=== PATIENT | female | born 1985 | race Caucasian/White ===

== ENCOUNTER 2018-05-03 17:43 | Emergency (ER) | payer BC, OTHER ==
[2018-05-03 17:51] VITALS: BP 131/82
[2018-05-03] MEDS ORDERED: diphenhydrAMINE 50 MG/ML SDV IVPUSH ONE ×2 (18:45→18:46)
[2018-05-03] MEDS ORDERED: Sodium Chloride 0.9% 10 ML Syringe FLUSH PRN (18:45)
[2018-05-03] MEDS ORDERED: Ketorolac 30 MG/ML SDV IVPUSH ONE (18:45)
[2018-05-03] MEDS ORDERED: Ondansetron 4 MG/2 ML SDV IVPUSH ONE (18:45)
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
[2018-05-03] MEDS ORDERED: Sodium Chloride 0.9% 1,000 ML IV ONE (19:49)
[2018-05-03] MEDS ORDERED: HYDROmorphone 0.5 MG/0.5 ML SYRINGE IVPUSH ONE ×2 (19:49→21:50)
[2018-05-03] MEDS ORDERED: LORazepam 0.5 MG Tab PO ONE (19:50)
== END 2018-05-03 22:23 | disposition home or self-care (01) ==
LOC: JD.ED 17:43
DX: G43.909 Migraine, unspecified, not intractable, without status migrainosus (principal); Z88.0 Allergy status to penicillin; Z88.1 Allergy status to other antibiotic agents; Z79.899 Other long term (current) drug therapy
CPT/HCPCS: 96361; 96374; 96375; 96376; 99284; A9270; J1170; J1200; J1885; J2405; J7040; J7050

== ENCOUNTER 2019-12-26 09:49 | Emergency (ER) | payer OTHER ==
[2019-12-26] MEDS ORDERED: Ondansetron 4 MG Tab.DIS PO ONE (10:35)
[2019-12-26] MEDS ORDERED: LORazepam 1 MG Tab PO ONE (10:50)
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
[2019-12-26 12:43] VITALS: BP 117/65; PULSE 88
== END 2019-12-26 12:25 | disposition home or self-care (01) ==
LOC: JD.ED 09:49
DX: F41.9 Anxiety disorder, unspecified (principal); F43.9 Reaction to severe stress, unspecified; K21.9 Gastro-esophageal reflux disease without esophagitis; F32.9 Major depressive disorder, single episode, unspecified; E66.9 Obesity, unspecified; Z68.33 Body mass index [BMI] 33.0-33.9, adult; Z88.0 Allergy status to penicillin; Z88.1 Allergy status to other antibiotic agents; Z91.041 Radiographic dye allergy status; Z79.899 Other long term (current) drug therapy
CPT/HCPCS: 99283; A9270; 99284

== ENCOUNTER 2020-04-18 17:58 | Emergency (ER) | payer OTHER ==
[2020-04-18] MEDS ORDERED: Sodium Chloride 0.9% 10 ML Syringe FLUSH PRN (18:20)
[2020-04-18] MEDS ORDERED: Sodium Chloride 0.9% 1,000 ML IV STA (18:20)
--- NOTE | 2020-04-18 18:37 | EDM.PDOC ---
<Drake Pappas - Last Filed: 04/18/20 19:15> ED HPI GENERAL MEDICAL PROBLEM - General Chief Complaint: BUSINESS SYSTEMS DEVELOPER Problem Stated Complaint: 18 WKS PG/BACK AND ABDOMINAL PAIN Time Seen by Provider: 04/18/20 18:12 Source of Information: Reports: Patient History Limitations: Reports: No Limitations - History of Present Illness INITIAL COMMENTS - FREE TEXT/NARRATIVE: The patient presents with lower abdominal pain and back pain. She is about 18 weeks gestation according to her last US. Her LNMP is 12/24/19. She is . She has no fever, chills, cough, chest pain, shortness of breath, nausea, vomiting, dysuria or diarrhea. This started this morning and got worse when she was shopping. She has no bleeding spotting or discharge. Onset: Gradual Duration: Hour(s): Location: Reports: Abdomen, Back Quality: Reports: Other (Cramping) Severity: Moderate Improves with: Reports: None Worsens with: Reports: None Associated Symptoms: Reports: No Other Symptoms - Related Data Allergies Allergy/AdvReac Type Severity Reaction Status Date / Time Penicillins Allergy Mild Hives Verified 04/18/20 18:08 amoxicillin [Amoxicillin] Allergy Cannot Verified 04/18/20 18:08 Remember penicillin V Allergy Cannot Verified 04/18/20 18:08 Remember RYE AdvReac Vomiting Uncoded 12/26/19 10:06 Home Meds: Home Meds Eletriptan Hydrobromide [Relpax] 20 mg PO DAILY PRN #20 tablet 05/03/18 [Rx] LORazepam 1 tab PO DAILY PRN 05/03/18 [History] Ibuprofen 800 mg PO ASDIRECTED PRN 12/26/19 [History] LORazepam [Ativan] 1 mg PO BID PRN #10 tablet 12/26/19 [Rx] Omeprazole Magnesium [Prilosec Otc] 20 mg PO DAILY 12/26/19 [History] NIFEdipine [Procardia] 10 mg PO Q8H #15 cap 04/18/20 [Rx] Past Medical History HEENT History: Reports: Impaired Vision Cardiovascular History: Reports: None Respiratory History: Reports: None Gastrointestinal History: Reports: GERD Genitourinary History: Reports: None BUSINESS SYSTEMS DEVELOPER History: Reports: Other BUSINESS SYSTEMS DEVELOPER History: Lost lots of blood during one Musculoskeletal History: Reports: None Neurological History: Reports: Migraines, Vertigo Psychiatric History: Reports: Anxiety, Depression, PTSD Endocrine/Metabolic History: Reports: Obesity/BMI 30+ Hematologic History: Reports: Anemia, Other (See Below) Other Hematologic History: Anemia during Immunologic History: Reports: None Oncologic (Cancer) History: Reports: None Dermatologic History: Reports: None - Infectious Disease History Infectious Disease History: Reports: Chicken Pox, Helicobacter Pylori - Past Surgical History HEENT Surgical History: Reports: Adenoidectomy, Myringotomy w Tube(s), Oral Surgery, Tonsillectomy Social & Family History - Family History HEENT: Reports: Macular Degeneration GI: Reports: Celiac Disease OBGYN: Reports: Dysfunctional uterine bleeding, Musculoskeletal: Reports: Osteoarthritis Psychiatric: Reports: Depression Endocrine/Metabolic: Reports: Hypothyroidism Oncologic: Reports: Breast - Tobacco Use Smoking Status *Q: Never Smoker - Caffeine Use Caffeine Use: Reports: Coffee - Recreational Drug Use Recreational Drug Use: No - Living Situation & Occupation Living situation: Reports: , with Spouse Occupation: Employed ED ROS GENERAL - Review of Systems Review Of Systems: See Below Constitutional: Reports: No Symptoms HEENT: Reports: No Symptoms Respiratory: Reports: No Symptoms Cardiovascular: Reports: No Symptoms Endocrine: Reports: No Symptoms GI/Abdominal: Reports: Abdominal Pain. Denies: Diarrhea, Nausea, Vomiting : Reports: No Symptoms Musculoskeletal: Reports: Back Pain (Low back pain) Skin: Reports: No Symptoms ED EXAM, GI/ABD - Physical Exam Exam: See Below Exam Limited By: No Limitations General Appearance: Alert, No Apparent Distress Ears: Normal External Exam Nose: Normal Inspection Head: Atraumatic, Normocephalic Neck: Normal Inspection Respiratory/Chest: No Respiratory Distress, Lungs Clear, Normal Breath Sounds Cardiovascular: Regular Rate, Rhythm, No Edema, No Murmur GI/Abdominal Exam: Soft, Tender ( Mild tenderness to the superpubic area with a gravid uterus mid way between the pubis and umbilicus) Course - Vital Signs Last Recorded V/S: Last Vital Signs Temp 98 F 04/18/20 18:04 Pulse 84 04/18/20 21:12 Resp 18 04/18/20 21:12 BP 110/78 04/18/20 21:12 Pulse Ox 100 04/18/20 21:12 - Orders/Labs/Meds Orders: Active Orders 24 hr Category Date Time Status Peripheral IV Care [RC] . DIRECTED Care 04/18/20 18:21 Active NIFEdipine [Procardia] Med 04/18/20 21:59 Once 10 mg PO ONETIME ONE Sodium Chloride 0.9% [Saline Flush] Med 04/18/20 18:20 Active 10 ml FLUSH ASDIRECTED PRN Peripheral IV Insertion Adult [OM.PC] Stat Oth 04/18/20 18:20 Ordered Medication Orders Sodium Chloride (Saline Flush) 10 ml FLUSH ASDIRECTED PRN PRN Reason: Keep Vein Open Last Admin: 04/18/20 18:38 Dose: 10 ml Labs: Laboratory Tests 04/18/20 04/18/20 04/18/20 Range/Units 18:35 18:35 18:40 WBC 12.42 H (3.98-10.04) K/mm3 RBC 4.43 (3.98-5.22) M/mm3 Hgb 13.2 (11.2-15.7) gm/dl Hct 39.1 (34.1-44.9) % MCV 88.3 (79.4-94.8) fl MCH 29.8 (25.6-32.2) pg MCHC 33.8 (32.2-35.5) g/dl RDW Std Deviation 41.9 (36.4-46.3) fL Plt Count 308 (182-369) K/mm3 MPV 10.3 (9.4-12.3) fl Neut % (Auto) 80.0 H (34.0-71.1) % Lymph % (Auto) 14.1 L (19.3-51.7) % Coal % (Auto) 4.9 (4.7-12.5) % Eos % (Auto) 0.6 L (0.7-5.8) Baso % (Auto) 0.2 (0.1-1.2) % Neut # (Auto) 9.94 H (1.56-6.13) K/mm3 Lymph # (Auto) 1.75 (1.18-3.74) K/mm3 Coal # (Auto) 0.61 H (0.24-0.36) K/mm3 Eos # (Auto) 0.07 (0.04-0.36) K/mm3 Baso # (Auto) 0.02 (0.01-0.08) K/mm3 Manual Slide Review Normal smear Sodium 140 (136-145) mEq/L Potassium 3.3 L (3.5-5.1) mEq/L Chloride 104 (98-107) mEq/L Carbon Dioxide 26 (21-32) mEq/L Anion Gap 13.3 (5-15) BUN 11 (7-18) mg/dL Creatinine 0.6 (0.55-1.02) mg/dL Est Cr Clr Drug Dosing TNP Estimated GFR (MDRD) > 60 (>60) mL/min BUN/Creatinine Ratio 18.3 H (14-18) Glucose 90 (74-106) mg/dL Calcium 9.3 (8.5-10.1) mg/dL Total Bilirubin 0.4 (0.2-1.0) mg/dL AST 17 (15-37) U/L ALT 26 (14-59) U/L Alkaline Phosphatase 75 (46-116) U/L C-Reactive Protein (<1.0) mg/dL Total Protein 7.3 (6.4-8.2) g/dl Albumin 3.3 L (3.4-5.0) g/dl Globulin 4.0 gm/dL Albumin/Globulin Ratio 0.8 L (1-2) Lipase 139 (73-393) U/L Urine Color Yellow (Yellow) Urine Appearance Clear (Clear) Urine pH 7.0 (5.0-8.0) Ur Specific Henderson > or = 1.030 (1.005-1.030) Urine Protein Negative (Negative) Urine Glucose (UA) Negative (Negative) Urine Ketones Negative (Negative) Urine Occult Blood Negative (Negative) Urine Nitrite Negative (Negative) Urine Bilirubin Negative (Negative) Urine Urobilinogen 0.2 (0.2-1.0) Ur Leukocyte Esterase Negative (Negative) Urine RBC 0-5 (0-5) /hpf Urine WBC 0-5 (0-5) /hpf Ur Squamous Epith Cells 0-5 (0-5) /hpf Urine Bacteria Few (FEW) /hpf Urine Mucus Few (FEW) /hpf 04/18/20 Range/Units 18:40 WBC (3.98-10.04) K/mm3 RBC (3.98-5.22) M/mm3 Hgb (11.2-15.7) gm/dl Hct (34.1-44.9) % MCV (79.4-94.8) fl MCH (25.6-32.2) pg MCHC (32.2-35.5) g/dl RDW Std Deviation (36.4-46.3) fL Plt Count (182-369) K/mm3 MPV (9.4-12.3) fl Neut % (Auto) (34.0-71.1) % Lymph % (Auto) (19.3-51.7) % Coal % (Auto) (4.7-12.5) % Eos % (Auto) (0.7-5.8) Baso % (Auto) (0.1-1.2) % Neut # (Auto) (1.56-6.13) K/mm3 Lymph # (Auto) (1.18-3.74) K/mm3 Coal # (Auto) (0.24-0.36) K/mm3 Eos # (Auto) (0.04-0.36) K/mm3 Baso # (Auto) (0.01-0.08) K/mm3 Manual Slide Review Sodium (136-145) mEq/L Potassium (3.5-5.1) mEq/L Chloride (98-107) mEq/L Carbon Dioxide (21-32) mEq/L Anion Gap (5-15) BUN (7-18) mg/dL Creatinine (0.55-1.02) mg/dL Est Cr Clr Drug Dosing Estimated GFR (MDRD) (>60) mL/min BUN/Creatinine Ratio (14-18) Glucose (74-106) mg/dL Calcium (8.5-10.1) mg/dL Total Bilirubin (0.2-1.0) mg/dL AST (15-37) U/L ALT (14-59) U/L Alkaline Phosphatase (46-116) U/L C-Reactive Protein 0.6 (<1.0) mg/dL Total Protein (6.4-8.2) g/dl Albumin (3.4-5.0) g/dl Globulin gm/dL Albumin/Globulin Ratio (1-2) Lipase (73-393) U/L Urine Color (Yellow) Urine Appearance (Clear) Urine pH (5.0-8.0) Ur Specific Henderson (1.005-1.030) Urine Protein (Negative) Urine Glucose (UA) (Negative) Urine Ketones (Negative) Urine Occult Blood (Negative) Urine Nitrite (Negative) Urine Bilirubin (Negative) Urine Urobilinogen (0.2-1.0) Ur Leukocyte Esterase (Negative) Urine RBC (0-5) /hpf Urine WBC (0-5) /hpf Ur Squamous Epith Cells (0-5) /hpf Urine Bacteria (FEW) /hpf Urine Mucus (FEW) /hpf Meds: Medications Generic Name Dose Route Start Last Admin Trade Name Freq PRN Reason Stop Dose Admin Sodium Chloride 10 ml 04/18/20 18:20 04/18/20 18:38 Saline Flush FLUSH 10 ml ASDIRECTED PRN Administration Keep Vein Open Discontinued Medications Generic Name Dose Route Start Last Admin Trade Name Freq PRN Reason Stop Dose Admin Sodium Chloride 1,000 mls @ 1,000 mls/hr 04/18/20 18:20 04/18/20 18:35 Normal Saline IV 04/18/20 19:19 1,000 mls/hr .BOLUS STA Administration Nifedipine 10 mg 04/18/20 20:38 04/18/20 20:48 Procardia PO 04/18/20 20:39 10 mg ONETIME ONE Administration - Re-Assessments/Exams Free Text/Narrative Re-Assessment/Exam: 04/18/20 18:37 I ordered an IV NS 1L bolus, labs, UA and an OB US. 04/18/20 19:15 Her WBC was slightly elevated at 12.42. Her K was a little low at 3.3. Her US shows no UTI. I am waiting on the US. I will have the tech pay attention to the RLQ because her WBC is a little high. It is the end of my sift. Rosio will be taking over. Departure - Departure Disposition: Home, Self-Care 01 Clinical Impression: Uterine cramping - Discharge Information Prescriptions: NIFEdipine [Procardia] 10 mg PO Q8H #15 cap Referrals: Jimmy Cobb MD [Primary Care Provider] - Forms: ED Department Discharge Additional Instructions: You were seen in the emergency department today for uterine cramping throughout the day. Your work-up included blood work, urinalysis, and a pelvic ultrasound. Your work-up was found to be normal. Pelvic exam showed that your cervix is closed. We did consult with the on-call BUSINESS SYSTEMS DEVELOPER, Dr. Spaulding. He recommend that we try nifedipine which works to relax uterine cramping. You stated that this did improve your symptoms. A prescription for this medication has been sent to [facility], however they are not open until noon tomorrow. You have been sent home with a single dose of this medication. This should be taken 8 hours from the dose that you received in the emergency department would be around 5 AM. Continue to take this medication every 8 hours. You should maintain very light activity over the next few days. Ensure that you stay adequately hydrated. Follow-up in the clinic early next week with your BUSINESS SYSTEMS DEVELOPER. If you should experience any worsening symptoms such as increased pain, cramping, bleeding, fever, chills, increased nausea or vomiting , please return to the emergency department for reevaluation. Sepsis Event Note - Evaluation Sepsis Screening Result: No Definite Risk - Focused Exam Vital Signs: Vital Signs Temp Pulse Resp BP BP Pulse Ox 04/18/20 21:12 84 18 110/78 100 04/18/20 20:48 110/67 04/18/20 18:04 98 F 105 H 16 127/79 99 Date Exam was Performed: 04/18/20 Time Exam was Performed: 19:15 - My Orders Last 24 Hours: My Active Orders 04/18/20 21:59 NIFEdipine [Procardia] 10 mg PO ONETIME ONE - Assessment/Plan Last 24 Hours: My Active Orders 04/18/20 21:59 NIFEdipine [Procardia] 10 mg PO ONETIME ONE <Rosio Velásquez - Last Filed: 04/18/20 22:07> ED EXAM, GI/ABD - Physical Exam (Female) Exam: Normal External Exam, Normal Speculum Exam, Enlarged Uterus, Uterine Tenderness. No: Cervical Dilatation, Cervical Discharge, Cervical Fluid , Cervical Lesions, Products of Conception, Vaginal Bleeding, Vaginal Lesions Course - Re-Assessments/Exams Free Text/Narrative Re-Assessment/Exam: 04/18/20 20:30 I assumed care for Dr. Ogden at end of shift. Ultrasound showed a single intrauterine fetus currently transverse lie. Dates as noted above. Placenta is fundal with no findings of placenta previa or abruption. Small hemorrhagic cyst within the maternal right ovary measuring 2 cm. Other portions of the right lower quadrant are obscured from shadowing bowel. Appendix is not well- visualized. On exam, patient has no tenderness throughout the right side of her abdomen. She does have a small amount of mild tenderness in the left lower quadrant as well as mild supra pubic tenderness. She states that the pain comes in spasms. She states it feels like her uterus is "locking down ". These episodes can last a few minutes at a time before they will let up. Lab work was overall unremarkable with the exception of a slightly elevated white count at 12.42. Called and spoke with the on-call BUSINESS SYSTEMS DEVELOPER, Dr. Spaulding. He recommend that we check her cervix to ensure it is not dilated. He then recommended that we give nifedipine 10 mg immediate release and see if that improves her symptoms. If it does help her symptoms, he recommended a prescription for nifedipine 10 mg every 8 hours. If she does not have improvement, he would like me to notify him. 04/18/20 20:42 On exam, patient's cervix is firm and closed. There is no bleeding or fluid noted coming from the cervix. Patient did verbalize that the cramping in her uterus seem to worsen after the pelvic exam. I have ordered nifedipine 10 mg p.o. Will reassess for effectiveness. 04/18/20 21:59 Patient did state that her cramping seems to have improved a bit after the nifedipine. Called and spoke with Dr. Spaulding. He stated that if she is having some improvement with nifedipine after 1 hour he would recommend that we discharge her home with a prescription for nifedipine every 8 hours. She should do only light activity for the next few days. Ensure she is adequately hydrated. If she experiences any worsening symptoms, she should return to the emergency department. He recommended that she follow-up in the clinic early next week. Discussed this with the patient she is in agreement. There is not a pharmacy open until noon tomorrow and nifedipine is not carried in our [facility]. I will send her home with 1 tablet of nifedipine to take 8 hours from the original dose we gave here. A prescription will then be sent to [facility] which is open from noon to for tomorrow. Discharge instructions as documented. Departure - Departure Time of Disposition: 22:01 Condition: Good - Discharge Information *PRESCRIPTION DRUG MONITORING PROGRAM REVIEWED*: No *COPY OF PRESCRIPTION DRUG MONITORING REPORT IN PATIENT ABEL: No Sepsis Event Note - Focused Exam Date Exam was Performed: 04/18/20 Time Exam was Performed: 21:59
--- NOTE | 2020-04-18 20:11 | US ---
Addendum: Voice recognition error is identified giving the current ultrasound date of 7 weeks 3 days which should be 17 weeks 3 days --- Addendum1 above dictated on [05/11/2020 10:49] by [Yanet Albright Hilton J.] --- --- Addendum1 above signed on [05/11/2020 10:51] by [Yanet Albright Hilton J.] --- --- Original report below dictated on [04/18/2020 20:08] by [Yanet Albright Hilton J.] --- --- Original report below signed on [04/18/2020 20:08] by [Yanet Albright Hilton J.] --- Follow-up obstetrical ultrasound: Multiple real-time images were obtained transabdominally. Additional images were obtained of the right lower quadrant. Comparison: Previous obstetrical ultrasound of 02/26/20. Dates: Current ultrasound: [facility] 09/23/20, gestational age 7 weeks 3 days Earlier ultrasound (02/26/20): [facility] 09/27/20, gestational age 16 weeks 6 days presentation: Transverse head to maternal left side Placenta: Fundal with no findings of present previa, no findings of abruption are seen Amniotic fluid: SHAISTA 11.5 cm Measurements: BPD: 3.96 cm - 18 weeks 0 days Head circumference: 14.34 cm - 17 weeks 4 days Abdominal circumference: 11.11 cm - 17 weeks 0 days Femur length: 2.34 cm - 17 weeks 0 days Estimated weight: 180 g (0 lbs. 6 oz.), estimated weight at the 58th percentile Heart rate: 154 bpm Maternal adnexa: Right ovary shows a small hemorrhagic cyst measuring 2.0 cm. Right lower quadrant is otherwise obscured from shadowing bowel with nonvisualized appendix noted. Impression: 1. Single intrauterine fetus currently transverse lie. Dates as noted above. 2. Placenta is fundal with no findings of placenta previa or abruption. 3. Small hemorrhagic cyst within the maternal right ovary measuring 2.0 cm. Other portions of the right lower quadrant are obscured from shadowing bowel. Appendix is not visualized. Diagnostic code #2 This report was dictated in MDT --- Addendum1 signed ---
[2020-04-18] MEDS ORDERED: NIFEdipine 10 MG Cap PO ONE ×2 (20:38→21:59)
[2020-04-18 21:12] VITALS: PULSE 84
[2020-04-18 22:14] VITALS: BP 109/63
== END 2020-04-18 22:16 | disposition home or self-care (01) ==
LOC: JD.ED 17:58
DX: O99.89 Other specified diseases and conditions complicating pregnancy, childbirth and the puerperium (principal); N94.89 Other specified conditions associated with female genital organs and menstrual cycle; O99.612 Diseases of the digestive system complicating pregnancy, second trimester; K21.9 Gastro-esophageal reflux disease without esophagitis; O99.342 Other mental disorders complicating pregnancy, second trimester; F41.9 Anxiety disorder, unspecified; F32.9 Major depressive disorder, single episode, unspecified; F43.10 Post-traumatic stress disorder, unspecified; E66.9 Obesity, unspecified; Z88.0 Allergy status to penicillin; Z91.018 Allergy to other foods; Z88.1 Allergy status to other antibiotic agents; Z79.899 Other long term (current) drug therapy; Z3A.18 18 weeks gestation of pregnancy
CPT/HCPCS: 36415; 76816; 80053; 81001; 83690; 85025; 86140; 99284; A9270; J7030

== ENCOUNTER 2021-05-02 10:53 | Emergency (ER) | payer OTHER ==
--- NOTE | 2021-05-02 11:20 | EDM.PDOC ---
ED HPI GENERAL MEDICAL PROBLEM - General Chief Complaint: Chest Pain Stated Complaint: CHEST PAIN SENT FROM [place] Time Seen by Provider: 05/02/21 11:01 Source of Information: Reports: Patient, RN Notes Reviewed History Limitations: Reports: No Limitations - History of Present Illness INITIAL COMMENTS - FREE TEXT/NARRATIVE: Patient is a 35-year-old female who presents to the ER for her chest discomfort. States that this also kind of started last night, she had some right- sided/midsternal chest pain, that radiated into her back, upper neck and to a headache. She states that she went to bed and did not get much sleep because she has a child that she breast-feeds. Woke up this morning again with some chest discomfort headache and just not feeling well, she goes to the walk- in clinic for evaluation. They did a EKG, and some laboratory evaluation to include a CBC, CMP, Covid screen and a D-dimer and then was sent to the ER. Review of the patient's labs from [facility] demonstrate a white cell count of 22.2 with no differential apparent on the fax. Metabolic panel appears unremarkable, Covid screen was negative. D-dimer did not result at this time yet. The EKG showed no signs of acute ST change reviewed by myself and Dr. Pappas. The patient states that she does feel fatigued, rundown, states that she feels somewhat short of breath as well, and chest pain seems to be worsened by laying down. She states she has allover body aches, has been feeling somewhat feverish and has 0 energy. She did have COVID-19 back in August 2020. She does not think she has been around anyone else that has been sick. 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 PAYROLL PROCESSOR History: Lost lots of blood during one Neurological History: Reports: Migraines, Vertigo Psychiatric History: Reports: Anxiety, Depression, PTSD Endocrine/Metabolic History: Reports: Obesity/BMI 30+ Hematologic History: Reports: Anemia, Other (See Below) Other Hematologic History: Anemia during - Infectious Disease History Infectious Disease History: Reports: Chicken Pox, Helicobacter Pylori, Novel Coronavirus (aug 2020) - Past Surgical History HEENT Surgical History: Reports: Adenoidectomy, Myringotomy w Tube(s), Oral Surgery, Tonsillectomy Female Surgical History: Reports: Other (See Below) Other Female Surgeries/Procedures: colposcopy Social & Family History - Family History HEENT: Reports: Macular Degeneration GI: Reports: Celiac Disease OBGYN: Reports: Dysfunctional uterine bleeding, Musculoskeletal: Reports: Osteoarthritis Psychiatric: Reports: Depression Endocrine/Metabolic: Reports: Hypothyroidism Oncologic: Reports: Breast - Tobacco Use Tobacco Use Status *Q: Never Tobacco User Second Hand Smoke Exposure: No - Caffeine Use Caffeine Use: Reports: None - Recreational Drug Use Recreational Drug Use: No - Living Situation & Occupation Living situation: Reports: , with Spouse Occupation: Employed ED ROS GENERAL - Review of Systems Review Of Systems: Comprehensive ROS is negative, except as noted in HPI. ED EXAM, GENERAL - Physical Exam Exam: See Below Exam Limited By: No Limitations General Appearance: Alert, WD/WN, No Apparent Distress Throat/Mouth: Normal Inspection, Normal Lips, Normal Teeth, No Airway Compromise, Other (bilateral redness to oropharyngeal cavity) Neck: Normal Inspection, Supple, Non-Tender Respiratory/Chest: No Respiratory Distress, Lungs Clear, Normal Breath Sounds, No Accessory Muscle Use Cardiovascular: Normal Peripheral Pulses, Regular Rate, Rhythm, No Edema GI/Abdominal: Normal Bowel Sounds, Soft, Non-Tender, No Distention, No Mass Extremities: Normal Inspection, Normal Capillary Refill Neurological: Alert, Oriented, Normal Cognition, No Motor/Sensory Deficits Psychiatric: Normal Affect, Normal Mood Skin Exam: Warm, Dry, Intact, Normal Color, No Rash #1 Interpretation EKG Date: 05/02/21 Time: 10:34 Rhythm: NSR Rate (Beats/Min): 90 [place]: Normal P-Wave: Present QRS: Normal ST-T: Normal QT: Normal Comparison: NA - No Prior EKG EKG Interpretation Comments: flipped t waves, no obvious ischemia or acute ST changes noted, reviewed by myself and Dr. Pappas. Course - Vital Signs Last Recorded V/S: Last Vital Signs Temp 98.0 F 05/02/21 11:00 Pulse 92 05/02/21 11:00 Resp 20 05/02/21 11:00 BP 110/61 05/02/21 11:00 Pulse Ox 96 05/02/21 11:00 - Orders/Labs/Meds Orders: Active Orders 24 hr Category Date Time Status CBC WITH AUTO DIFF [HEME] Stat Lab 05/02/21 11:14 Ordered COMPREHENSIVE METABOLIC PN,CMP [CHEM] Stat Lab 05/02/21 11:15 Ordered CRP [C-REACTIVE PROTEIN] [CHEM] Stat Lab 05/02/21 11:16 Ordered CULTURE BLOOD [BC] Stat Lab 05/02/21 11:21 Ordered CULTURE BLOOD [BC] Stat Lab 05/02/21 11:21 Ordered MAGNESIUM [CHEM] Stat Lab 05/02/21 11:15 Ordered TROPONIN I [CHEM] Stat Lab 05/02/21 11:16 Ordered UA W/MICROSCOPIC [URIN] Stat Lab 05/02/21 11:20 Ordered Blood Culture x2 Reflex Set [OM.PC] Stat Oth 05/02/21 11:21 Ordered Labs: Laboratory Tests 05/02/21 05/02/21 05/02/21 Range/Units 11:20 11:44 12:00 WBC 24.02 H (3.98-10.04) K/mm3 RBC 4.69 (3.98-5.22) M/mm3 Hgb 13.8 D (11.2-15.7) gm/dl Hct 41.9 (34.1-44.9) % MCV 89.3 (79.4-94.8) fl MCH 29.4 (25.6-32.2) pg MCHC 32.9 (32.2-35.5) g/dl RDW Std Deviation 42.7 (36.4-46.3) fL Plt Count 302 (182-369) K/mm3 MPV 10.4 (9.4-12.3) fl Neut % (Auto) 91.7 H (34.0-71.1) % Lymph % (Auto) 3.8 L (19.3-51.7) % Leslie % (Auto) 3.7 L (4.7-12.5) % Eos % (Auto) 0.5 L (0.7-5.8) Baso % (Auto) 0.1 (0.1-1.2) % Neut # (Auto) 22.02 H (1.56-6.13) K/mm3 Lymph # (Auto) 0.92 L (1.18-3.74) K/mm3 Leslie # (Auto) 0.89 H (0.24-0.36) K/mm3 Eos # (Auto) 0.11 (0.04-0.36) K/mm3 Baso # (Auto) 0.03 (0.01-0.08) K/mm3 Urine Color Yellow (Yellow) Urine Appearance Clear (Clear) Urine pH 7.0 (5.0-8.0) Ur Specific [place] 1.020 (1.005-1.030) Urine Protein Negative (Negative) Urine Glucose (UA) Negative (Negative) Urine Ketones Negative (Negative) Urine Occult Blood Negative (Negative) Urine Nitrite Negative (Negative) Urine Bilirubin Negative (Negative) Urine Urobilinogen 0.2 (0.2-1.0) Ur Leukocyte Esterase Negative (Negative) Group A Strep (PCR) Not detected (NOT DETECT) Meds: Medications Discontinued Medications Generic Name Dose Route Start Last Admin Trade Name Galindo PRN Reason Stop Dose Admin Ibuprofen 600 mg 05/02/21 12:03 Ibuprofen 600 Mg Tab PO 05/02/21 12:04 ONETIME ONE - Re-Assessments/Exams Free Text/Narrative Re-Assessment/Exam: 05/02/21 11:24 Patient presents to the ER for the evaluation of her mid central/right-sided chest pain, EKG done at the walk-in clinic demonstrates no focal abnormalities, we will go ahead and repeat some labs to include a CBC, CMP, troponin just to make sure that it is indeed noncardiac etiology. Although it does seem to be more chest wall tenderness. We will get a strep screen as well along with a CRP, chest x-ray and urinalysis and blood cultures. 05/02/21 12:14 Patient's labs have started to result, her white count is markedly elevated at 24.02 with 91% neutrophils on the auto differential. Urinalysis is negative for any infection, chest ray demonstrates no sign of acute consolidation. Strep charis dalal is also negative. Estrada ray I did call with D-dimer results and it was just slightly elevated at 0.52. Which in light of the patient's chest tenderness, and feelings of shortness of breath very well could be a pulmonary embolus. I did go ahead and recheck the patient's skin, and breast tissue, she is not having any breast tenderness and/or redness or drainage to suggest possible mastitis, notes that she has had mastitis in the past but she states feeling is not very similar. She states in November she was feeling quite unwell, and they were concerned about possible gallbladder etiology as her Erazo sign was positive, but she never did follow-up with any of this. Patient would rather not have a CTA of her chest today; as she is still breast-feeding, and would not want to "pump and dump" for the next few days due to the contrast. We will go forward with a RUQ ultrasound for further investigation purposes. Patient states that she has also been having some diarrhea. 05/02/21 13:[address] demonstrates no focal abnormalities, she has mild diastasis recti and a small nonobstructing stone within the inferior left kidney but again nothing to explain the elevated white count by any means appendix was seen and is normal, gallbladder has no stones there is no gallbladder wall thickening. After extensive work-up, there is no major red flags to explain the elevated white count. We did get blood cultures, patient does not look toxic by any means, I think we will let her go home, monitor her symptoms, start her on some sort of empiric antibiotic therapy and have her follow-up with her regular care provider, sometime early this week and/or we will call her if blood cultures are worrisome. Departure - Departure Time of Disposition: 13:57 Disposition: Home, Self-Care 01 Condition: Good Clinical Impression: Acute chest wall pain Elevated WBC count Qualifiers: Leukocytosis type: unspecified Qualified Code(s): D72.829 - Elevated white blood cell count, unspecified - Discharge Information *PRESCRIPTION DRUG MONITORING PROGRAM REVIEWED*: No *COPY OF PRESCRIPTION DRUG MONITORING REPORT IN PATIENT ABEL: No Instructions: Chest Wall Pain, [id number] Referrals: PCP,None [Primary Care Provider] - Forms: ED Department Discharge Additional Instructions: You were evaluated in ER today for your chest wall discomfort. 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 You may continue to use 600 mg ibuprofen every 6 hours as needed for further pain relief. Your laboratory evaluation did demonstrate a markedly elevated white blood cell count 24,000, which is somewhat concerning. You had a multitude of tests done at today's visit, and there has been no clear etiology of why the blood count is elevated for today's purposes. He had a chest x-ray, urinalysis, EKG, and a CT, as well as basic labs and everything other than the white count is essentially normal. Regarding the IV contrast that had to be used, it is common to dump breastmilk at least 24 hours after IV contrast has been utilized. We did take blood cultures, which is to check for bacteria in the bloodstream, this does take 24 to 48 hours to start growing out any sort of organisms, we will call you in the event that the blood cultures are positive. In the interim you have been started on antibiotics, for unknown infection source. This will be cephalexin 4 times daily for the next 7 days. This medication was electronically sent to the [facility] located near [facility]. Please be near your phone for the next day or 2, if you see a call from a private number that is likely our hospital try to get a hold of you, please answer the phone. You will need close follow-up in clinic, please call our clinic at [phone], any family practice provider would be able to provide you with the services however I do suggest possibly Dr. Pamela Correa; as she is newer to our practice and may have more room in her schedule to accommodate this request. Please call early Monday to obtain an appointment, hopefully early Monday for follow-up. Please return to the ER at any time if your symptoms should change or worsen in any way. Sepsis Event Note (ED) - Evaluation Sepsis Screening Result: No Definite Risk - Focused Exam Vital Signs: Vital Signs Temp Pulse Resp BP Pulse Ox 05/02/21 11:00 98.0 F 92 20 110/61 96 - My Orders Last 24 Hours: My Active Orders 05/02/21 11:14 CBC WITH AUTO DIFF [HEME] Stat 05/02/21 11:15 COMPREHENSIVE METABOLIC PN,CMP [CHEM] Stat MAGNESIUM [CHEM] Stat 05/02/21 11:16 CRP [C-REACTIVE PROTEIN] [CHEM] Stat TROPONIN I [CHEM] Stat 05/02/21 11:20 UA W/MICROSCOPIC [URIN] Stat 05/02/21 11:21 CULTURE BLOOD [BC] Stat CULTURE BLOOD [BC] Stat Blood Culture x2 Reflex Set [OM.PC] Stat - Assessment/Plan Last 24 Hours: My Active Orders 05/02/21 11:14 CBC WITH AUTO DIFF [HEME] Stat 05/02/21 11:15 COMPREHENSIVE METABOLIC PN,CMP [CHEM] Stat MAGNESIUM [CHEM] Stat 05/02/21 11:16 CRP [C-REACTIVE PROTEIN] [CHEM] Stat TROPONIN I [CHEM] Stat 05/02/21 11:20 UA W/MICROSCOPIC [URIN] Stat 05/02/21 11:21 CULTURE BLOOD [BC] Stat CULTURE BLOOD [BC] Stat Blood Culture x2 Reflex Set [OM.PC] Stat
--- NOTE | 2021-05-02 11:41 | CR ---
Chest: PA and lateral views of the chest were obtained. Comparison: No prior chest imaging is available. Heart size and mediastinum are normal. Lungs are clear with no acute parenchymal change. Very slight scoliosis is noted within the spine. No acute osseous abnormality is appreciated. Impression: 1. Slight scoliosis within the spine. 2. Nothing acute is otherwise seen on 2 view chest x-ray. Diagnostic code #2
[2021-05-02] MEDS ORDERED: Ibuprofen 600 MG Tab PO ONE (12:03)
[2021-05-02] MEDS ORDERED: Ketorolac 30 MG/ML SDV IVPUSH ONE (12:56)
[2021-05-02] MEDS ORDERED: Iopamidol 612 MG/ML 100 ML Bottle IVPUSH ONE (13:10)
[2021-05-02] MEDS ORDERED: Iopamidol 612 MG/ML 50 ML SDV IVPUSH ONE (13:10)
[2021-05-02] MEDS ORDERED: Sodium Chloride 0.9% 10 ML Syringe FLUSH PRN (13:23)
--- NOTE | 2021-05-02 13:47 | CT ---
CT abdomen and pelvis Technique: Multiple axial sections were obtained from above the dome of the diaphragm inferiorly through the pubic symphysis. Intravenous contrast was utilized. No oral contrast has been given. Delayed images were through the bladder. Reconstructed coronal and sagittal images were obtained. Comparison: No prior abdominal imaging is available. Findings: Visualized lung bases show no acute abnormality. Liver contains no focal parenchymal abnormality. Spleen size is normal. Adrenal glands show no nodule. Pancreas is within normal limits. Gallbladder contains no calcified gallstones. Kidneys show symmetric contrast enhancement. No hydronephrosis is seen. Very small calcification is noted inferiorly within the left kidney which is compatible with very minimal nonobstructing calculus. Abdominal aorta shows no aneurysm. No retroperitoneal adenopathy is seen. No mesenteric abnormalities are seen. Slight diastases of the rectus sheath is noted. No pelvic mass or adenopathy is seen. Delayed images show contrast within the distal ureters and within the bladder. Appendix is seen which is normal in size. No adnexal abnormalities are appreciated. Bone window settings were reviewed which appear within normal limits for the patient's age. Impression: 1. Mild diastasis of the rectus sheath. 2. Small nonobstructing stone within the inferior left kidney. 3. Nothing acute is appreciated on CT study of the abdomen and pelvis. Diagnostic code #2
[2021-05-02 14:32] VITALS: BP 113/74; PULSE 80
== END 2021-05-02 14:20 | disposition home or self-care (01) ==
LOC: JD.ED 10:53
DX: R07.89 Other chest pain (principal); D72.829 Elevated white blood cell count, unspecified; E66.9 Obesity, unspecified; Z68.34 Body mass index [BMI] 34.0-34.9, adult; Z88.0 Allergy status to penicillin
CPT/HCPCS: 36415; 71046; 74177; 80053; 81001; 83735; 84484; 85025; 86140; 87040; 87651; 96374; 99285; A9270; J1885; Q9967; 93010; 99284

== ENCOUNTER 2021-12-24 11:38 | Emergency (ER) | payer OTHER ==
[2021-12-24] MEDS ORDERED: LORazepam 2 MG/ML SDV IVPUSH ONE (12:10)
[2021-12-24] MEDS ORDERED: Sodium Chloride 0.9% 10 ML Syringe FLUSH PRN (12:10)
[2021-12-24 13:06] VITALS: BP 119/71; PULSE 102
== END 2021-12-24 13:06 | disposition home or self-care (01) ==
LOC: JD.ED 11:38
DX: F41.9 Anxiety disorder, unspecified (principal); R07.89 Other chest pain; E66.9 Obesity, unspecified; Z68.35 Body mass index [BMI] 35.0-35.9, adult; Z88.0 Allergy status to penicillin; Z91.048 Other nonmedicinal substance allergy status
CPT/HCPCS: 36415; 80053; 83735; 84443; 84484; 85025; 93005; 96374; 99285; J2060

== ENCOUNTER 2022-10-31 10:04 | Emergency (ER) | payer OTHER ==
[2022-10-31 10:16] VITALS: BP 121/88; PULSE 80
[2022-10-31] MEDS ORDERED: LORazepam 1 MG Tab PO ONE (10:54)
== END 2022-10-31 13:05 | disposition home or self-care (01) ==
LOC: JD.ED 10:04
DX: F41.0 Panic disorder [episodic paroxysmal anxiety] (principal); E66.9 Obesity, unspecified; Z68.34 Body mass index [BMI] 34.0-34.9, adult; Z88.0 Allergy status to penicillin; Z91.018 Allergy to other foods
CPT/HCPCS: 99283; A9270